=== PATIENT | female | born 1965 | race Caucasian/White ===

== ENCOUNTER 2019-12-24 10:04 | Outpatient (CLI) | payer BC, SELFPAY ==
--- NOTE | ~2019-12-24 | XR_ITS ---
XR lumbar spine 2-3V 12/24/2019 10:47 Indication: Low back pain Procedure: 3 views lumbar spine Comparison: No prior studies for comparison. Findings: There is grade 1 spondylolisthesis at L5-S1. Vertebral body heights are maintained. No acut e fractures identified. No significant disc narrowing. There is mild dextrocurvature of the lumbar sp ine. There is mild degenerative changes at L1-2. Impression: 1: Grade 1 spondylolisthesis at L5-S1, likely secondary to spondylolysis. 2: Mild lumbar spondylosis. Reviewed, dictated and finalized at location A. Impression: 1: Grade 1 spondylolisthesis at L5-S1, likely secondary to spondylolysis. 2: Mild lumbar spondylosis.
--- NOTE | ~2019-12-24 | XR_ITS ---
XR cervical spine 4-5V 12/24/2019 10:47 Indication: Neck pain. Procedure: 4 views cervical spine Comparison: 08/21/2019 Findings: Straightening of cervical lordosis. Vertebral body heights are maintained. There is disc na rrowing at C5-6 and C6-7. No prevertebral soft tissue swelling. Odontoid process within normal limits . Mild multilevel uncinate hypertrophy. Lung apices are normal. Impression: 1: Mild-moderate cervical spondylosis. Reviewed, dictated and finalized at location A. Impression: 1: Mild-moderate cervical spondylosis.
== END 2019-12-24 10:05 | disposition home or self-care (01) ==
LOC: ANHIMG 10:15
PROVIDERS: PCP Family Medicine; Visit Provider Family Medicine
DX: M79.605 Pain in left leg (principal); R53.1 Weakness; R20.9 Unspecified disturbances of skin sensation; E56.9 Vitamin deficiency, unspecified; Z13.29 Encounter for screening for other suspected endocrine disorder; M47.896 Other spondylosis, lumbar region; M47.892 Other spondylosis, cervical region
CPT/HCPCS: 72050; 72100